=== PATIENT | female | born 1975 | race Caucasian/White ===

== ENCOUNTER 2016-10-29 16:07 | Emergency (ER) | payer MEDICAID ==
--- NOTE | 2016-10-29 17:16 | ER Document Report ---
ED Medical Screen (RME) - General Chief Complaint: Vaginal Pain Stated Complaint: VAGINAL PAIN Time Seen by Provider: 10/29/16 17:11 Mode of Arrival: Ambulatory Information source: Patient Notes: This is a 41-year-old female who is recently being treated for [place] spotted fever who presents with vaginal pain. She states that she has had vaginal irritation for the past few days and initially thought she might have a yeast infection. However she has since developed painful sores in her vaginal area along with dysuria. No fevers or chills. I have greeted and performed a rapid initial assessment of this patient. A comprehensive ED assessment and evaluation of the patient, analysis of test results and completion of the medical decision making process will be conducted by additional ED providers. TRAVEL OUTSIDE OF THE [place] IN LAST 30 DAYS: No - Related Data Allergies/Adverse Reactions: Penicillins Allergy (Verified 10/29/16 17:11) quetiapine [From Seroquel] Allergy (Verified 10/29/16 17:11) trazodone Allergy (Verified 10/29/16 17:11) doxycycline Adverse Reaction (Verified 10/29/16 17:11) Vomiting Past Medical History Pulmonary Medical History: Reports: Hx COPD Renal/ Medical History: Denies: Hx Peritoneal Dialysis Past Surgical History: Reports: Hx Orthopedic Surgery - Spinal fusion, SI joint fusion Physical Exam - Vital signs Vitals: Temp Pulse Resp BP Pulse Ox 98.3 F 97 18 118/73 97 10/29/16 16:22 10/29/16 16:22 10/29/16 16:22 10/29/16 16:22 10/29/16 16:22 Course - Vital Signs Vital signs: Temp Pulse Resp BP Pulse Ox 98.3 F 97 18 118/73 97 10/29/16 16:22 10/29/16 16:22 10/29/16 16:22 10/29/16 16:22 10/29/16 16:22
[2016-10-29] MEDS ORDERED: AZITHROMYCIN 250 MG TABLET PO ONE (18:32)
[2016-10-29] MEDS ORDERED: CEFTRIAXONE INJ 1000 MG VIAL IM ONE (18:32)
--- NOTE | 2016-10-29 18:32 | ER Document Report ---
ED General - General Mode of Arrival: Ambulatory Information source: Patient TRAVEL OUTSIDE OF THE [place] IN LAST 30 DAYS: No - HPI Onset: Other - x2 days Onset/Duration: Persistent Quality of pain: Burning Associated symptoms: None - General Chief Complaint: Vaginal Pain Stated Complaint: VAGINAL PAIN Time Seen by Provider: 10/29/16 17:11 Notes: Patient is a 41-year-old female that presents to the emergency department today with complaints of vaginal pain. Patient states 2 days ago she noticed a "tiny white spot on her labia that looked like a fire ant bite". Patient states she attempted to use Monistat cream which made her pain worse. (NICKY PAVON) - Related Data Allergies/Adverse Reactions: Penicillins Allergy (Verified 10/29/16 17:11) quetiapine [From Seroquel] Allergy (Verified 10/29/16 17:11) trazodone Allergy (Verified 10/29/16 17:11) doxycycline Adverse Reaction (Verified 10/29/16 17:11) Vomiting Past Medical History - General Information source: Patient - Social History Smoking Status: Unknown if Ever Smoked Frequency of alcohol use: None Drug Abuse: None Lives with: Family Family History: Reviewed & Not Pertinent Patient has suicidal ideation: No Patient has homicidal ideation: No Pulmonary Medical History: Reports: Hx COPD Past Surgical History: Reports: Hx Orthopedic Surgery - Spinal fusion, SI joint fusion Review of Systems - Review of Systems Constitutional: No symptoms reported EENT: No symptoms reported Cardiovascular: No symptoms reported Respiratory: No symptoms reported Gastrointestinal: No symptoms reported Genitourinary: No symptoms reported Female Genitourinary: See HPI, Other - external vaginal lesion, pain and burning Musculoskeletal: No symptoms reported Skin: No symptoms reported Hematologic/Lymphatic: No symptoms reported Neurological/Psychological: No symptoms reported -: Yes All other systems reviewed and negative Physical Exam - Vital signs Vitals: Temp Pulse Resp BP Pulse Ox 98.3 F 97 18 118/73 97 10/29/16 16:22 10/29/16 16:22 10/29/16 16:22 10/29/16 16:22 10/29/16 16:22 - Notes Notes: Physical Exam: General: Alert, appears well. HEENT: Normocephalic. Atraumatic. PERRL. Extraocular movements intact. Oropharynx clear. Neck: Supple. Non-tender. Respiratory: No respiratory distress. Clear and equal breath sounds bilaterally. Cardiovascular: Regular rate and rhythm. Abdominal: Normal Inspection. Non-tender. No distension. Normal Bowel Sounds. Female Genitourinary: Assisted by female tech. Copious amounts of white vaginal discharge. External lesions on labia consistent with herpetic lesions. Back: Non-tender. No deformity or step off. Extremities: Moves all four extremities. Upper extremities: Normal inspection. Normal ROM. Lower extremities: Normal inspection. No edema. Normal ROM. Neurological: Normal cognition. AAOx4. Normal speech. Psychological: Normal affect. Normal Mood. Skin: Warm. Dry. Normal color. (NICKY PAVON) Course - Re-evaluation Re-evalutation: 10/29/16 18:35 Patient presents emergency department chiefly of vaginal discharge and painful lesions on her vagina. She says she has had sexual partners in the past she is unaware that she is ever been exposed to genital herpes. She states that she thought she had a yeast infection uncertain is whether she has had gonorrhea chlamydia past. She is not . On examination she admits to taking some Vicodin and is under the influence of that. She says she has a follow-up appointment with [facility] for a Pap smear coming up in her primary care physician in [facility]. She has been recently diagnosed with [place] spotted fever but there is no association with what she is complaining of she has large amount of vaginal discharge and open sores to her external vagina concerning for herpes genitalia. Went ahead and give her Rocephin Zithromax. GC chlamydia wet prep and genital herpes culture follow-up [facility] start on acyclovir and discussed reasons for ED return to (KENTRELL DENG) - Vital Signs Vital signs: Temp Pulse Resp BP Pulse Ox 98.3 F 97 18 118/73 97 10/29/16 16:22 10/29/16 16:22 10/29/16 16:22 10/29/16 16:22 10/29/16 16:22 - Laboratory Laboratory results interpreted by me: 10/29/16 19:05 Ur Leukocyte Esterase LARGE H Urine Ascorbic Acid 40 H Discharge - Discharge Clinical Impression: Cervicitis, Genital lesion, female Condition: Stable Disposition: HOME, SELF-CARE Additional Instructions: Cervicitis You have an inflammation of the cervix. This can be caused by germs, viruses, or allergy (for example to spermicide). Sometimes no cause is found. If there is no obvious cause, you will be tested for dangerous infections. These are herpes, gonorrhea, and chlamydia. Cultures may take a few days. If the physician is suspicious of a particular cause, you may begin treatment while waiting for cultures. Call or return if you develop abdominal pain, fever, rash, or other new symptoms. concerns Genital Herpes Your exam suggests that you have a herpes infection. A culture can confirm the diagnosis. Herpes is caused by a virus, and can be transmitted sexually. After the initial infection has healed, the virus often erupts at the same location from time to time. Herpes can be treated with anti-viral medication. The medicine can be used as pills or ointment. It's most effective if started with the first symptoms of the attack. It is not a "cure" -- it simply shortens the length of the illness. If this is not your first attack, the medicine may not help you. In the female, herpes can infect the baby as it passes through the canal, causing a life-threatening disease. You should inform the cement handler that you've had herpes should you (or your spouse) become . Sexual contact should be avoided any time the sores are present, but the virus may be contagious even at other times. The use of condoms may help prevent infection in your partner. Prescriptions: Acyclovir [Acyclovir 400 mg Tablet] 400 mg PO DAILY #20 tablet Referrals: [facility] [Provider Group] (Follow-up in 3-4 days return for increased worsening or new symptoms) Nikitaibkatalina Attestation: 10/29/16 18:35 I personally performed the services described in the documentation reviewed the documentation recorded by my scribe in my presence and it accurately and completely records my words and actions (KENTRELL DENG) Nikitaibe Documentation - Scribe Written by Betsy:: Betsy Mancia, [id number] 10/29/2016 acting as scribe for :: Jan
[2016-10-29] MEDS ORDERED: LIDOCAINE 1% INJ-PF (10 MG/ML) 30 ML SDV ONE (18:57)
[2016-10-29 19:18] LABS: APPEARANCE,URINE SLIGHTLY-CLOUDY; BILIRUBIN,URINE NEGATIVE (NEGATIVE); GLUCOSE, URINE NEGATIVE (NEGATIVE); KETONES,URINE NEGATIVE (NEGATIVE); LEUKOCYTE ESTERASE,URINE LARGE (NEGATIVE); NITRITE,URINE NEGATIVE (NEGATIVE); PROTEIN,URINE NEGATIVE (NEGATIVE); URINE SPECIFIC GRAVITY 1.015; UROBILINOGEN,URINE NEGATIVE mg/dL (<2.0)
[2016-10-29 20:27] LABS: CHLAM PCR NOT DETECTED (NOT DETECT)
== END 2016-10-29 19:32 | disposition home or self-care (01) ==
LOC: ER 16:07
DX: N72 Inflammatory disease of cervix uteri (principal); N94.9 Unspecified condition associated with female genital organs and menstrual cycle; R10.2 Pelvic and perineal pain; R50.9 Fever, unspecified; Z88.0 Allergy status to penicillin; Z88.3 Allergy status to other anti-infective agents; J44.9 Chronic obstructive pulmonary disease, unspecified; Z98.1 Arthrodesis status
CPT/HCPCS: 99283; 96372; 87210; 81025; 81001; 87250; 87491; 87591; Q0144; J3490; J0696

== ENCOUNTER 2018-11-11 21:35 | Emergency (ER) | payer MEDICAID ==
[2018-11-11 22:08] VITALS: BP 93/66
[2018-11-11 22:43] LABS: ABSOLUTE EOSINOPHILS # (AUTO) 0.4 10^3/uL (0.0-0.6); ABSOLUTE LYMPHOCYTES (AUTO) 2.2 10^3/uL (0.5-4.7); ABSOLUTE MONOCYTES (AUTO) 0.7 10^3/uL (0.1-1.4); ABSOLUTE NEUT (AUTO) 11.5 10^3/uL (1.7-8.2); BASOPHILS % (AUTO) 0.2 % (0-2); EOSINOPHILS % (AUTO) 2.8 % (0-6); HEMATOCRIT 42.8 % (36.0-47.0); HEMOGLOBIN 14.7 g/dL (12.0-15.5); LYMPHOCYTES % (AUTO) 14.7 % (13-45); MEAN CORPUSCULAR HEMOGLOBIN 32.6 pg (27.0-33.4); MEAN CORPUSCULAR HGB CONC 34.4 g/dL (32.0-36.0); MEAN CORPUSCULAR VOLUME 95 fl (80-97); MONOCYTES % (AUTO) 4.6 % (3-13); PLATELET COUNT 226 10^3/uL (150-450); RED BLOOD COUNT 4.52 10^6/uL (3.72-5.28); RED CELL DISTRIBUTION WIDTH 13.7 % (11.5-14.0); SEGMENTED NEUTROPHILS % (AUTO) 77.7 % (42-78); TOTAL CELLS COUNTED % (AUTO) 100 %; WHITE BLOOD COUNT 14.8 10^3/uL (4.0-10.5)
[2018-11-11 22:46] LABS: APPEARANCE,URINE SLIGHTLY-CLOUDY; BILIRUBIN,URINE NEGATIVE (NEGATIVE); COLOR,URINE STRAW; GLUCOSE, URINE NEGATIVE (NEGATIVE); KETONES,URINE NEGATIVE (NEGATIVE); LEUKOCYTE ESTERASE,URINE TRACE (NEGATIVE); NITRITE,URINE NEGATIVE (NEGATIVE); PROTEIN,URINE NEGATIVE (NEGATIVE); URINE SPECIFIC GRAVITY 1.004; UROBILINOGEN,URINE NEGATIVE mg/dL (<2.0)
[2018-11-11 22:58] LABS: ALANINE AMINOTRANSFERASE 17 U/L (9-52); ALBUMIN 4.8 g/dL (3.5-5.0); ALKALINE PHOSPHATASE 47 U/L (38-126); ANION GAP 10 (5-19); ASPARTATE AMINO TRANSFERASE 17 U/L (14-36); BILIRUBIN,DIRECT 0.3 mg/dL (0.0-0.4); BILIRUBIN,TOTAL 0.4 mg/dL (0.2-1.3); BLOOD UREA NITROGEN 16 mg/dL (7-20); CALCIUM 9.9 mg/dL (8.4-10.2); CARBON DIOXIDE 29 mmol/L (22-30); CHLORIDE 100 mmol/L (98-107); GLUCOSE 102 mg/dL (75-110); LIPASE 60.1 U/L (23-300); POTASSIUM 4.5 mmol/L (3.6-5.0); SODIUM 139.1 mmol/L (137-145); TOTAL PROTEIN 7.9 g/dL (6.3-8.2)
== END 2018-11-12 01:25 | disposition left against medical advice (07) ==
LOC: ER 21:35
DX: Z53.21 Procedure and treatment not carried out due to patient leaving prior to being seen by health care provider (principal)
CPT/HCPCS: 36415; 80053; 81001; 81025; 83690; 85025

== ENCOUNTER 2018-11-12 20:35 | Emergency (ER) | payer MEDICAID ==
[2018-11-12 20:57] VITALS: BP 88/62
[2018-11-12 22:09] LABS: ABSOLUTE EOSINOPHILS # (AUTO) 0.3 10^3/uL (0.0-0.6); ABSOLUTE LYMPHOCYTES (AUTO) 2.3 10^3/uL (0.5-4.7); ABSOLUTE MONOCYTES (AUTO) 0.8 10^3/uL (0.1-1.4); ABSOLUTE NEUT (AUTO) 7.4 10^3/uL (1.7-8.2); BASOPHILS % (AUTO) 0.2 % (0-2); EOSINOPHILS % (AUTO) 2.6 % (0-6); HEMATOCRIT 41.8 % (36.0-47.0); HEMOGLOBIN 14.6 g/dL (12.0-15.5); LYMPHOCYTES % (AUTO) 21.1 % (13-45); MEAN CORPUSCULAR VOLUME 94 fl (80-97); MONOCYTES % (AUTO) 7.3 % (3-13); PLATELET COUNT 219 10^3/uL (150-450); RED BLOOD COUNT 4.43 10^6/uL (3.72-5.28); RED CELL DISTRIBUTION WIDTH 13.2 % (11.5-14.0); SEGMENTED NEUTROPHILS % (AUTO) 68.8 % (42-78); TOTAL CELLS COUNTED % (AUTO) 100 %; WHITE BLOOD COUNT 10.7 10^3/uL (4.0-10.5)
[2018-11-12] MEDS ORDERED: OXYCODONE-ACETAMINOPHEN 5-325 MG TABLET PO ONE (22:15)
[2018-11-12] MEDS ORDERED: ONDANSETRON 4 MG TAB.RAPDIS PO ONE (22:15)
--- NOTE | 2018-11-12 22:18 | ER Document Report ---
ED Medical Screen (RME) - General Chief Complaint: Flank Pain Stated Complaint: ABDOMINAL PAIN Time Seen by Provider: 11/12/18 22:14 Notes: 43-year-old female with chief complaint of right abdominal/pelvic pain that started almost 2 days ago, she was here last night but left because of the long wait, she states it worsened today and she became nauseated. She does have a history of ovarian cysts, she does still have her appendix. She denies fever/chills, dysuria. She has had some light vaginal bleeding intermittently. TRAVEL OUTSIDE OF THE [place] IN LAST 30 DAYS: No - Related Data Allergies/Adverse Reactions: Penicillins Allergy (Verified 11/12/18 20:40) quetiapine [From Seroquel] Allergy (Verified 11/12/18 20:40) trazodone Allergy (Verified 11/12/18 20:40) doxycycline Adverse Reaction (Verified 11/12/18 20:40) Vomiting Past Medical History Pulmonary Medical History: Reports: Hx COPD Renal/ Medical History: Denies: Hx Peritoneal Dialysis Past Surgical History: Reports: Hx Orthopedic Surgery - Spinal fusion, SI joint fusion Physical Exam - Vital signs Vitals: Temp Pulse Resp BP Pulse Ox 98.2 F 105 H 16 88/62 L 97 11/12/18 20:56 11/12/18 20:56 11/12/18 20:56 11/12/18 20:56 11/12/18 20:56 - Abdominal Tenderness: Tender - Tender in the right abdominal pelvic area. Remaining abdomen with generalized tenderness only. Course - Re-evaluation Re-evalutation: Blood pressure is 88 systolic, patient states her average is 90 and 88 is normal. She is alert, talkative, not diaphoretic. She is slim. She is very tender in the right general mid to lower abdomen. Performing an ultrasound first, test from yesterday was completed and negative. I have greeted and performed a rapid initial assessment of this patient. A comprehensive ED assessment and evaluation of the patient, analysis of test results and completion of the medical decision making process will be conducted by additional ED providers. - Vital Signs Vital signs: Temp Pulse Resp BP Pulse Ox 98.2 F 105 H 16 88/62 L 97 11/12/18 20:56 11/12/18 20:56 11/12/18 20:56 11/12/18 20:56 11/12/18 20:56 - Laboratory Result Diagrams: 11/12/18 21:50 11/12/18 21:50 Laboratory results interpreted by me: 11/12/18 21:50 WBC 10.7 H
[2018-11-12 22:35] LABS: ALANINE AMINOTRANSFERASE 14 U/L (9-52); ALBUMIN 4.2 g/dL (3.5-5.0); ALKALINE PHOSPHATASE 48 U/L (38-126); ANION GAP 9 (5-19); ASPARTATE AMINO TRANSFERASE 15 U/L (14-36); BILIRUBIN,DIRECT 0.3 mg/dL (0.0-0.4); BILIRUBIN,TOTAL 0.4 mg/dL (0.2-1.3); BLOOD UREA NITROGEN 14 mg/dL (7-20); CALCIUM 9.3 mg/dL (8.4-10.2); CARBON DIOXIDE 26 mmol/L (22-30); CHLORIDE 102 mmol/L (98-107); GLUCOSE 104 mg/dL (75-110); POTASSIUM 3.7 mmol/L (3.6-5.0); SODIUM 136.7 mmol/L (137-145); TOTAL PROTEIN 7.2 g/dL (6.3-8.2)
[2018-11-12 22:42] LABS: APPEARANCE,URINE SLIGHTLY-CLOUDY; BILIRUBIN,URINE NEGATIVE (NEGATIVE); COLOR,URINE YELLOW; GLUCOSE, URINE NEGATIVE (NEGATIVE); KETONES,URINE NEGATIVE (NEGATIVE); LEUKOCYTE ESTERASE,URINE TRACE (NEGATIVE); NITRITE,URINE NEGATIVE (NEGATIVE); PROTEIN,URINE NEGATIVE (NEGATIVE); URINE SPECIFIC GRAVITY 1.015; UROBILINOGEN,URINE NEGATIVE mg/dL (<2.0)
--- NOTE | 2018-11-13 00:29 | RADIOLOGY REPORT (SQ) ---
EXAM DESCRIPTION: US PELVIS TRANSVAGINAL COMPLETED DATE/TME: 11/12/2018 22:15 CLINICAL HISTORY: 43 years Female, right pelvic pain, nausea, hx cysts COMPARISON: None. TECHNIQUE: Complete pelvic ultrasound obtained with transvaginal and transabdominal imaging FINDINGS: Uterus: The uterus measures 8.4 x 5.3 x 3.8 cm. Curvilinear hyperdense structure with posterior shadowing in the uterine fundus possibly representing a calcified fibroid. Endometrium: Endometrial thickness of 3.5 mm. Right ovary: The right ovary measures 3.0 x 3.2 x 1.2 cm. Left ovary: The left ovary measures 2.3 x 2.3 x 1.9 cm. Adnexa: No large adnexal masses. Free fluid: No free pelvic fluid. Duplex imaging: Color and spectral Doppler imaging demonstrate blood flow within the ovaries bilaterally. IMPRESSION: 1. Possible calcified fibroid in the uterine fundus measuring 1.4 cm in greatest dimension. 2. No other abnormalities identified in the pelvis.
[2018-11-13] MEDS ORDERED: OXYCODONE-ACETAMINOPHEN 5-325 MG TABLET PO ONE (01:21)
[2018-11-13] MEDS ORDERED: ONDANSETRON 4 MG TAB.RAPDIS PO ONE (01:21)
--- NOTE | 2018-11-13 03:48 | ER Document Report ---
ED General <ADRIAN EAGLE - Last Filed: 11/13/18 06:56> - General TRAVEL OUTSIDE OF THE [place] IN LAST 30 DAYS: No <MATYE SETHI - Last Filed: 11/14/18 06:09> - General Chief Complaint: Flank Pain Stated Complaint: ABDOMINAL PAIN Time Seen by Provider: 11/12/18 22:14 Primary Care Provider: [facility] [Provider Group] - Follow up as needed - HPI Notes: Patient is a 43-year-old female who comes to the emergency department for evaluation of right lower quadrant abdominal pain. She states this started yesterday. She actually came to the ED to be seen, but waited "too long" and decided to leave. She states today her pain worsened, she became nauseated, so she presents back to the ED for further evaluation. She does remark that she is had a diminished appetite. She had some nausea but no emesis. Normal bowel movements. She has had some abnormal vaginal bleeding. She states she has had at least spotting for 4 weeks. She does note that her mother became perimenopausal around the same age. She is sexually active. She denies any vaginal discharge. (MAYTE SETHI) - Related Data Allergies/Adverse Reactions: Penicillins Allergy (Verified 11/12/18 20:40) quetiapine [From Seroquel] Allergy (Verified 11/12/18 20:40) trazodone Allergy (Verified 11/12/18 20:40) doxycycline Adverse Reaction (Verified 11/12/18 20:40) Vomiting Past Medical History - General Information source: Patient - Social History Smoking Status: Current Every Day Smoker Frequency of alcohol use: Social Drug Abuse: None Family History: Reviewed & Not Pertinent, Malignancy - Ovarian cancer in mother, Pulmonary Medical History: Reports: Hx COPD Renal/ Medical History: Denies: Hx Peritoneal Dialysis Past Surgical History: Reports: Hx Orthopedic Surgery - Spinal fusion, SI joint fusion <MAYTE SETHI - Last Filed: 11/14/18 06:09> Review of Systems - Review of Systems Constitutional: No symptoms reported EENT: No symptoms reported Cardiovascular: No symptoms reported Respiratory: No symptoms reported Gastrointestinal: See HPI Genitourinary: No symptoms reported Female Genitourinary: See HPI Musculoskeletal: No symptoms reported Skin: No symptoms reported Neurological/Psychological: No symptoms reported <MAYTE SETHI - Last Filed: 11/14/18 06:09> Physical Exam <MAYTE SETHI - Last Filed: 11/14/18 06:09> - Vital signs Vitals: Temp Pulse Resp BP Pulse Ox 98.2 F 105 H 16 88/62 L 97 11/12/18 20:56 11/12/18 20:56 11/12/18 20:56 11/12/18 20:56 11/12/18 20:56 - Notes Notes: Vital signs reviewed, please refer to chart. Head is normocephalic, atraumatic. Pupils equal round, reactive to light. Neck is supple without meningismus. Heart is regular rate and rhythm. Lungs are clear to auscultation bilaterally. Abdominal exam reveals severe right lower quadrant tenderness, moderate right upper quadrant tenderness, with voluntary guarding. No rebound appreciated. Normoactive bowel sounds. Extremities without cyanosis, clubbing. Posterior calves are nontender. Peripheral pulses are equal. Skin is warm and dry. Patient is awake, alert, neurological exam is nonfocal. (MAYTE SETHI) Course - Laboratory Result Diagrams: 11/12/18 21:50 11/12/18 21:50 <ADRIAN EAGLE - Last Filed: 11/13/18 06:56> - Laboratory Result Diagrams: 11/12/18 21:50 11/12/18 21:50 - Diagnostic Test Radiology reviewed: Reports reviewed <MAYTE SETHI - Last Filed: 11/14/18 06:09> - Re-evaluation Re-evalutation: 11/13/18 03:47 Patient presents emergency department for evaluation of abdominal pain. Laboratory investigations, imaging, initial medications were all ordered through triage. Patient's transvaginal ultrasound failed to reveal any significant cyst or other etiology of her pain. Patient was kept NPO. Labs revealed a mild leukocytosis, otherwise unremarkable. Awaiting CT scan. 11/13/18 04:20 As of yet, patient has not had her CT scan done. Serial abdominal exams are significantly tender. She is medicated here. Care of this patient was turned over to the physician assistant county engineer, please see his note for the remainder of this patient's ED course and disposition. (MAYTE SETHI) - Vital Signs Vital signs: Temp Pulse Resp BP Pulse Ox 98.2 F 105 H 16 88/62 L 97 11/12/18 20:56 11/12/18 20:56 11/12/18 20:56 11/12/18 20:56 11/12/18 20:56 - Laboratory Laboratory results interpreted by me: 11/12/18 11/12/18 11/12/18 21:50 21:50 21:50 WBC 10.7 H Sodium 136.7 L Urine Blood MODERATE H Ur Leukocyte Esterase TRACE H - Diagnostic Test Radiology results interpreted by me: 11/14/18 06:08 Transvaginal US 11/12/18 22:15 IMPRESSION: 1. Possible calcified fibroid in the uterine fundus measuring 1.4 cm in greatest dimension. 2. No other abnormalities identified in the pelvis. Abdomen/Pelvis CT 11/13/18 00:00 IMPRESSION: 1. No evidence of acute intra-abdominal or intrapelvic pathology. 2. Hepatomegaly. 3. Remote postsurgical changes of the lumbar spine consistent with posterior decompression and fusion of L4-S1 utilizing pedicle screws. The indwelling hardware produces significant spray artifact resulting in slight degradation of image quality at the operative levels. 4. No evidence of acute appendicitis, gallbladder pathology or urinary tract obstruction. There are no findings on this examination to explain the patient's right lower quadrant symptoms. (MAYTE SETHI) Discharge <ADRIAN EAGLE - Last Filed: 11/13/18 06:56> <MAYTE SETHI - Last Filed: 11/14/18 06:09> - Discharge Clinical Impression: Right sided abdominal pain Condition: Stable Disposition: HOME, SELF-CARE Additional Instructions: Your workup shows a uterine fibroid, chronic back changes, but no acute or concerning findings otherwise are noted today. At this time we do not believe that your abdominal pain is from a surgical abnormality. Take the provided medication if needed, take stool softener, follow-up with TRAVEL DIRECTOR for additional management. Return if you worsen including fever, shaking chills, swelling or severe pain of the abdomen, vomiting, or any other concerning or worsening symptoms. Prescriptions: Docusate Sodium [Colace 100 mg Capsule] 100 mg PO ASDIR PRN #30 capsule PRN Reason: Hydrocodone/Acetaminophen [[place]ork 5-325 mg Tablet] 1 - 2 tab PO ASDIR #10 tablet Ondansetron [Zofran Odt 4 mg Tablet] 1 - 2 tab PO Q4H PRN #15 tab.rapdis PRN Reason: For Nausea/Vomiting Forms: Return to Work Referrals: [facility] [Provider Group] - Follow up as needed
[2018-11-13] MEDS ORDERED: ONDANSETRON HCL INJ/PF 4 MG/2 ML SDV IV ONE (04:11)
[2018-11-13] MEDS ORDERED: MORPHINE SULFATE 10 MG/ML INJ IV ONE (04:11)
--- NOTE | 2018-11-13 05:34 | RADIOLOGY REPORT (SQ) ---
EXAM: CT abdomen and pelvis with IV contrast CLINICAL DATA: 43-year-old female with right lower quadrant pain TECHNICAL DATA: Axial CT imaging of the abdomen and pelvis was performed following the administration of intravenous contrast.. Sagittal and coronal reconstructed images were then performed. The CT study is performed according to ALARA (as low as reasonably achievable) or ALARA/IMAGE GENTLY, with automatic adjustment of mA and/or kV according to patient size. Performed on: 11/13/2018 at 4:50 AM. Comparison: None were available at this time FINDINGS: Lung bases: The lung bases are clear. Liver: The liver is enlarged and measures 20 cm in craniocaudal dimension. No focal hepatic abnormalities are identified. Liver attenuation is within normal limits. Spleen:The spleen is normal is size, configuration and attenuation. Gallbladder and bile duct: The gallbladder is well distended and unremarkable. There is no biliary ductal dilatation. Pancreas: The pancreas is grossly normal in size and configuration. Adrenal Glands:The adrenal glands are normal in size and configuration. Kidneys:The kidneys are normal in size and configuration. There is no evidence of hydronephrosis. There is no evidence of nephrolithiasis. No definite solid or cystic renal mass lesions are identified. Stomach:The stomach is grossly normal. There is no definite hiatal hernia. Bowel:The bowel gas pattern is non specific and non obstructive. Appendix: The appendix is normal. Free air:There is no evidence of free air. Free fluid: There is no evidence of free fluid. Vasculature: The aorta is normal in caliber and contour. The inferior vena cava is grossly unremarkable. There are mild atherosclerotic calcifications along the abdominal aorta. There is significant spray artifact related to the indwelling hardware in the lumbar spine extending from L4 through S1. Lymphadenopathy: No pathologic lymphadenopathy is identified. Bladder: The bladder is well distended and smooth in contour. Reproductive: The uterus is grossly within normal limits. Bones: No acute osseous abnormalities are identified. There are remote postsurgical changes of the lumbar spine consistent with posterior decompression and fusion of L4-S1 utilizing pedicle screws. There is no evidence to suggest hardware failure. The indwelling hardware produces significant spray artifact resulting in slight degradation of image quality at the operative levels. Soft tissues: No focal soft tissue abnormalities are identified. IMPRESSION: 1. No evidence of acute intra-abdominal or intrapelvic pathology. 2. Hepatomegaly. 3. Remote postsurgical changes of the lumbar spine consistent with posterior decompression and fusion of L4-S1 utilizing pedicle screws. The indwelling hardware produces significant spray artifact resulting in slight degradation of image quality at the operative levels. 4. No evidence of acute appendicitis, gallbladder pathology or urinary tract obstruction. There are no findings on this examination to explain the patient's right lower quadrant symptoms.
[2018-11-13] MEDS ORDERED: HYDROCODONE/ACETAMINOPHEN 5-325 MG (6 TAB/ER DISP) PO PRN (06:56)
== END 2018-11-13 07:09 | disposition home or self-care (01) ==
LOC: ER 20:35
DX: R10.31 Right lower quadrant pain (principal); R10.813 Right lower quadrant abdominal tenderness; R10.811 Right upper quadrant abdominal tenderness; R11.0 Nausea; R63.0 Anorexia; R16.0 Hepatomegaly, not elsewhere classified; N93.9 Abnormal uterine and vaginal bleeding, unspecified; J44.9 Chronic obstructive pulmonary disease, unspecified; F17.200 Nicotine dependence, unspecified, uncomplicated; Z80.41 Family history of malignant neoplasm of ovary; Z88.0 Allergy status to penicillin; Z88.8 Allergy status to other drugs, medicaments and biological substances
CPT/HCPCS: 99284; 96374; 96375; 36415; 83690; 84703; 85025; 80053; 81001; 76830; 93976; 74177; S0119 ×2; J2270; J2405

== ENCOUNTER 2019-02-15 17:22 | Emergency (ER) | payer SELFPAY | END 2019-02-15 18:50 | disposition left against medical advice (07) | LOC: ER 17:22 | DX: Z53.21 Procedure and treatment not carried out due to patient leaving prior to being seen by health care provider (principal) ==

== ENCOUNTER 2019-07-17 08:56 | Emergency (ER) | payer SELFPAY ==
--- NOTE | 2019-07-17 09:15 | ER Document Report ---
HPI - HPI Time Seen by Provider: 07/17/19 09:09 Pain Level: 4 Notes: CHIEF COMPLAINT: Thoracic back pain over the last 1 to 2 weeks after coughing HPI: 44-year-old female presenting to the emergency department complaining of thoracic back pain over the last 1 to 2 weeks on the right side. Patient states that she and her family members had developed a cough 2 weeks ago. Patient had very heavy coughing, states that is improved she has no shortness of breath or pleuritic pain when she attempts to move her right arm back she has pain in the right thoracic back area near the scapula. States IcyHot patches do seem to work on the pain. ROS: See HPI - all other systems were reviewed and are otherwise negative Constitutional: no fever Eyes: no drainage, no blurred vision ENT: no runny nose, no sore throat Cardiovascular: no chest pain Resp: no SOB, positive cough GI: no vomiting, no diarrhea, no abdominal pain : no dysuria Integumentary: no rash Allergy: no hives Musculoskeletal: no extremity pain or swelling, positive back pain Neurological: no numbness/tingling, no weakness MEDICATIONS: I agree with the patient medications as charted by the RN. ALLERGIES: I agree with the allergies as charted by the RN. PAST MEDICAL HISTORY/PAST SURGICAL HISTORY: Reviewed and agree as charted by RN. SOCIAL HISTORY: Reviewed and agree as charted by RN. FAMILY HISTORY: No significant familial comorbid conditions directly related to patient complaint EXAM: Reviewed vital signs as charted by RN. CONSTITUTIONAL: Alert and oriented and responds appropriately to questions. Well-appearing; well-nourished, mild distress secondary to pain HEAD: Normocephalic; atraumatic EYES: PERRL; Conjunctivae clear, sclerae non-icteric ENT: normal nose; no rhinorrhea; moist mucous membranes; pharynx without lesions noted, no uvula edema or deviation, no tonsillar hypertrophy, phonation normal NECK: Supple without meningismus; non-tender; no cervical lymphadenopathy, no masses CARD: RRR; no murmurs, no clicks, no rubs, no gallops; symmetric distal pulses RESP: Normal chest excursion without splinting or tachypnea; breath sounds clear and equal bilaterally; no wheezes, no rhonchi, no rales ABD/GI: Normal bowel sounds; non-distended; soft, non-tender, no rebound, no guarding; no palpable organomegaly or masses. BACK: The back appears normal and is non-tender to palpation directly over the thoracic and lumbar spine there is muscular tenderness medial to the right scapula, there is no CVA tenderness EXT: Normal ROM in all joints; non-tender to palpation; no cyanosis, no effusions, no edema SKIN: Normal color for age and race; warm; dry; good turgor; no acute lesions noted NEURO: Moves all extremities equally; Motor and sensory function intact PSYCH: The patient's mood and manner are appropriate. Grooming and personal hygiene are appropriate. MDM: 44-year-old female with thoracic back pain that is reproducible. Likely muscular strain, will obtain chest x-ray given her recent cough to ensure no pneumonia or pneumothorax - REPRODUCTIVE Reproductive: DENIES: : Past Medical History - Social History Smoking Status: Current Every Day Smoker Chew tobacco use (# tins/day): No Frequency of alcohol use: Rare Drug Abuse: None Family History: Reviewed & Not Pertinent, Malignancy - Ovarian cancer in mother, Patient has suicidal ideation: No Patient has homicidal ideation: No Pulmonary Medical History: Reports: Hx COPD Renal/ Medical History: Denies: Hx Peritoneal Dialysis Past Surgical History: Reports: Hx Orthopedic Surgery - Spinal fusion, SI joint fusion Vertical Provider Document - INFECTION CONTROL TRAVEL OUTSIDE OF THE [place] IN LAST 30 DAYS: No Course - Re-evaluation Re-evalutation: 07/17/19 09:47 X-ray on my review does not show evidence of pneumothorax or infiltrate, likely muscular injury will place on Voltaren, Flexeril, orthopedic follow-up Discharge - Discharge Clinical Impression: Acute thoracic myofascial strain Qualifiers: Encounter type: initial encounter Qualified Code(s): S29.019A - Strain of muscle and tendon of unspecified wall of thorax, initial encounter Condition: Stable Disposition: HOME, SELF-CARE Additional Instructions: Warm heat to the right thoracic back for spasm. Medications as prescribed no driving if taking muscle relaxers. Follow-up with orthopedics for further evaluation and treatment call for appointment Prescriptions: Cyclobenzaprine HCl [Flexeril 10 mg Tablet] 10 mg PO TIDP PRN #15 tab PRN Reason: Diclofenac Sodium [Voltaren 50 Mg Tablet.] 50 mg PO BID #20 tablet. Referrals: LINA PEDRO MD [ACTIVE PROVISIONAL STAFF] - Follow up as needed
--- NOTE | 2019-07-17 09:38 | RADIOLOGY REPORT (SQ) ---
EXAM DESCRIPTION: CHEST 2 VIEWS COMPLETED DATE/TIME: 07/17/2019 9:24 am REASON FOR STUDY: thoracic back pain cough COMPARISON: None. EXAM PARAMETERS: NUMBER OF VIEWS: two views TECHNIQUE: Digital Frontal and Lateral radiographic views of the chest acquired. RADIATION DOSE: NA LIMITATIONS: none FINDINGS: LUNGS AND PLEURA: No opacities, masses or pneumothorax. No pleural effusion. MEDIASTINUM AND HILAR STRUCTURES: No masses or contour abnormalities. HEART AND VASCULAR STRUCTURES: Heart normal size. No evidence for failure. BONES: No acute findings. HARDWARE: None in the chest. OTHER: No other significant finding. IMPRESSION: NO ACUTE RADIOGRAPHIC FINDING IN THE CHEST. TECHNICAL DOCUMENTATION: JOB ID: [id number] 2010 [employer]- All Rights Reserved Reading location - IP/workstation name: [email or web address]
[2019-07-17 10:25] VITALS: BP 96/54
== END 2019-07-17 10:19 | disposition home or self-care (01) ==
LOC: ER 08:56
DX: S29.012A Strain of muscle and tendon of back wall of thorax, initial encounter (principal); X58.XXXA Exposure to other specified factors, initial encounter; J44.9 Chronic obstructive pulmonary disease, unspecified; R05 Cough; F17.200 Nicotine dependence, unspecified, uncomplicated
CPT/HCPCS: 71046; 99283

== ENCOUNTER 2019-10-22 14:01 | Emergency (ER) | payer SELFPAY ==
[2019-10-22] MEDS ORDERED: NORMAL SALINE 1000 ML 1,000 ML IV ONE (16:23)
[2019-10-22] MEDS ORDERED: PROCHLORPERAZINE EDISYLATE INJ 10 MG/2 ML VIAL IV ONE (16:23)
[2019-10-22] MEDS ORDERED: KETOROLAC TROMETHAMINE INJ/PF 30 MG/1 ML SDV IV ONE (16:23)
[2019-10-22] MEDS ORDERED: DIPHENHYDRAMINE HCL 50 MG/ML VIAL IV ONE (16:23)
--- NOTE | 2019-10-22 16:24 | ER Document Report ---
ED General - General Chief Complaint: Headache Stated Complaint: CHEST PAIN Time Seen by Provider: 10/22/19 16:11 Primary Care Provider: [facility] [Provider Group] - Follow up as needed Mode of Arrival: Ambulatory Information source: Patient Notes: Patient presents complaining of increased stress recently due to strained relations between her and her roommate whom she also happens to work with. Patient states that the stress is spilled over into the workplace. Patient states yesterday she feels as though she had an anxiety attack and had sharp chest pain. Patient states the pain has not been present today. Patient denies any cough or cold symptoms. Patient denies any nausea or vomiting. Patient states due to the increase in stress she has been clenching her jaw and each side of her jaw is sore. Patient complains of headache today. TRAVEL OUTSIDE OF THE [place] IN LAST 30 DAYS: No - HPI Onset: Yesterday Quality of pain: Other - Tightness Pain Level: 4 Associated symptoms: Chest pain, Headache. denies: Nonproductive cough, Diarrhea, Fever, Nausea, Vomiting, Shortness of breath Exacerbated by: Other - Stress Relieved by: Denies Similar symptoms previously: No Recently seen / treated by doctor: No - Related Data Allergies/Adverse Reactions: Penicillins Allergy (Verified 07/17/19 09:01) quetiapine [From Seroquel] Allergy (Verified 07/17/19 09:01) trazodone Allergy (Verified 07/17/19 09:01) doxycycline Adverse Reaction (Verified 07/17/19 09:01) Vomiting Past Medical History - General Information source: Patient - Social History Smoking Status: Current Every Day Smoker Frequency of alcohol use: None Drug Abuse: None Occupation: Foodservice Lives with: Other - Roommate Family History: Reviewed & Not Pertinent, Malignancy - Ovarian cancer in mother, Patient has homicidal ideation: No Pulmonary Medical History: Reports: Hx COPD Renal/ Medical History: Denies: Hx Peritoneal Dialysis Psychiatric Medical History: Reports: Hx Anxiety, Hx Depression Past Surgical History: Reports: Hx Orthopedic Surgery - Spinal fusion, SI joint fusion Review of Systems - Review of Systems Constitutional: No symptoms reported. denies: Fever, Recent illness EENT: Other - Jaw pain Cardiovascular: Chest pain Respiratory: No symptoms reported. denies: Cough, Short of breath Gastrointestinal: No symptoms reported. denies: Abdominal pain, Vomiting Genitourinary: No symptoms reported Female Genitourinary: No symptoms reported Musculoskeletal: No symptoms reported. denies: Neck pain Skin: No symptoms reported Hematologic/Lymphatic: No symptoms reported Neurological/Psychological: Headaches Physical Exam - Vital signs Vitals: Temp Pulse Resp BP Pulse Ox 97.5 F 83 16 111/69 98 10/22/19 14:20 10/22/19 14:20 10/22/19 14:20 10/22/19 14:20 10/22/19 14:20 - General General appearance: Appears well, Alert In distress: None - HEENT Head: Normocephalic, Atraumatic Eyes: Normal Conjunctiva: Normal Extraocular movements intact: Yes Eyelashes: Normal Pupils: PERRL Ears: Normal External canal: Normal Tympanic membrane: Normal Nasal: Normal Mouth/Lips: Other - TMJ joint tenderness, no crepitus,normal bite Mucous membranes: Normal Pharynx: Normal. No: Erythema, Tonsillar hypertrophy Neck: Normal, Supple. No: Lymphadenopathy, Meningismus - Respiratory Respiratory status: No respiratory distress Chest status: Nontender Breath sounds: Normal. No: Rales, Rhonchi, Stridor, Wheezing Chest palpation: Normal - Cardiovascular Rhythm: Regular Heart sounds: S1 appreciated, S2 appreciated - Abdominal Inspection: Normal Distension: No distension Bowel sounds: Normal Tenderness: Nontender Organomegaly: No organomegaly - Back Back: Normal, Nontender. No: CVA tenderness - Extremities General upper extremity: Normal inspection, Normal strength General lower extremity: Normal inspection, Normal strength - Neurological Neuro grossly intact: Yes Cognition: Normal Lilly Coma Scale Eye Opening: Spontaneous [place] Coma Scale Verbal: Oriented Lilly Coma Scale Motor: Obeys Commands Lilly Coma Scale Total: 15 - Psychological Associated symptoms: Normal affect, Normal mood - Skin Skin Temperature: Warm Skin Moisture: Dry Skin Color: Normal Course - Re-evaluation Re-evalutation: 10/22/19 18:43 Patient states that headache pain is almost completely resolved at this time. Patient denies any any additional pain medication at this time. Patient denies any chest discomfort and has not had any pain since yesterday. The patient presents with headache without signs of CHUCK BONER bleed, stroke, infection, or other serious etiology. The patient is neurologically intact. Patient with a history of chest pain in an otherwise well appearing patient. Low clinical suspicion for ACS given clinical history, exam, EKG without acute ischemic changes, and negative initial troponin. HEART score less than or equal to 3. PE also seems unlikely given clinical history, absence of tachycardia or dyspnea. Patient is PERC criteria negative. CXR without evidence of pneumothorax or pneumonia. No widened mediastinum. Chest pain in a patient without evidence of cardiac or other serious etiology on workup today. I discussed with patient that, based on their age, risk factors and emergency department testing today, the likelihood that their symptoms are related to a heart attack is very low. The patient demonstrates decision making capacity and has verbalized an understanding of these risks to me. Based on this, the patient has chosen to follow-up as an outpatient. Usual chest pain return precautions reviewed. The patient states understanding and agreement with this plan. - Vital Signs Vital signs: Temp Pulse Resp BP Pulse Ox 97.5 F 83 17 104/68 100 10/22/19 15:25 10/22/19 14:20 10/22/19 18:13 10/22/19 18:51 10/22/19 18:13 - Laboratory Result Diagrams: 10/22/19 15:50 10/22/19 15:50 Laboratory results interpreted by me: 10/22/19 15:50 Sodium 136.1 L Labs- All tests 24 hr 10/22/19 10/22/19 10/22/19 15:50 15:50 15:50 WBC 7.0 RBC 4.23 Hgb 13.9 Hct 40.2 MCV 95 MCH 32.8 MCHC 34.6 RDW 14.0 Plt Count 203 Lymph % (Auto) 33.7 [place] % (Auto) 5.2 Eos % (Auto) 1.1 Baso % (Auto) 0.3 Absolute Neuts (auto) 4.2 Absolute Lymphs (auto) 2.4 Absolute Monos (auto) 0.4 Absolute Eos (auto) 0.1 Absolute Basos (auto) 0.0 Seg Neutrophils % 59.7 Sodium 136.1 L Potassium 4.0 Chloride 104 Carbon Dioxide 27 Anion Gap 5 BUN 10 Creatinine 0.61 Est GFR ( Amer) > 60 Est GFR (MDRD) Non-Af > 60 Glucose 84 Calcium 9.1 Total Bilirubin 0.5 Direct Bilirubin 0.0 Neonat Total Bilirubin Not Reportable Neonat Direct Bilirubin Not Reportable Neonat Indirect Bili Not Reportable AST 19 ALT 10 Alkaline Phosphatase 41 Troponin I < 0.012 Total Protein 7.0 Albumin 4.1 - Diagnostic Test Radiology reviewed: Reports reviewed - EKG Interpretation by Me EKG shows normal: Sinus rhythm Rate: Normal Rhythm: NSR When compared to previous EKG there are: Previous EKG unavailable Additional EKG results interpreted by me: 10/22/19 18:45 QTc 441, no acute ischemic changes Discharge - Discharge Clinical Impression: Anxiety, Stress at work Chest pain Qualifiers: Chest pain type: unspecified Qualified Code(s): R07.9 - Chest pain, unspecified Headache Qualifiers: Headache type: unspecified Headache chronicity pattern: unspecified pattern Intractability: not intractable Qualified Code(s): R51 - Headache Condition: Stable Disposition: HOME, SELF-CARE Instructions: Anxiety ([facility]), Intravenous Compazine for Headaches ([facility]), Chest Pain of Unclear Cause ([facility]), Headache ([facility]), Toradol Injection ([facility]) Additional Instructions: Return immediately for any new or worsening symptoms Followup with your primary care provider, call tomorrow to make a followup ap pointment Prescriptions: Butalb/Acetaminophen/Caffeine [Fioricet (50-325-40 mg) Tablet] 1 - 2 tab PO Q4H PRN #15 each PRN Reason: Hydroxyzine Pamoate [Vistaril 50 mg Capsule] 50 mg PO TID PRN #15 capsule PRN Reason: Forms: Return to Work [facility] [Provider Group] - Follow up as needed
[2019-10-22 16:44] LABS: ABSOLUTE EOSINOPHILS # (AUTO) 0.1 10^3/uL (0.0-0.6); ABSOLUTE LYMPHOCYTES (AUTO) 2.4 10^3/uL (0.5-4.7); ABSOLUTE MONOCYTES (AUTO) 0.4 10^3/uL (0.1-1.4); ABSOLUTE NEUT (AUTO) 4.2 10^3/uL (1.7-8.2); BASOPHILS % (AUTO) 0.3 % (0-2); EOSINOPHILS % (AUTO) 1.1 % (0-6); HEMATOCRIT 40.2 % (36.0-47.0); HEMOGLOBIN 13.9 g/dL (12.0-15.5); LYMPHOCYTES % (AUTO) 33.7 % (13-45); MEAN CORPUSCULAR HEMOGLOBIN 32.8 pg (27.0-33.4); MEAN CORPUSCULAR HGB CONC 34.6 g/dL (32.0-36.0); MEAN CORPUSCULAR VOLUME 95 fl (80-97); MONOCYTES % (AUTO) 5.2 % (3-13); PLATELET COUNT 203 10^3/uL (150-450); RED BLOOD COUNT 4.23 10^6/uL (3.72-5.28); SEGMENTED NEUTROPHILS % (AUTO) 59.7 % (42-78); TOTAL CELLS COUNTED % (AUTO) 100 %
--- NOTE | 2019-10-22 16:50 | RADIOLOGY REPORT (SQ) ---
EXAM DESCRIPTION: CHEST SINGLE VIEW IMAGES COMPLETED DATE/TIME: 10/22/2019 4:39 pm REASON FOR STUDY: cp COMPARISON: 07/17/2019 EXAM PARAMETERS: NUMBER OF VIEWS: One view. TECHNIQUE: Single frontal radiographic view of the chest acquired. RADIATION DOSE: NA LIMITATIONS: None. FINDINGS: LUNGS AND PLEURA: No opacities, masses or pneumothorax. No pleural effusion. MEDIASTINUM AND HILAR STRUCTURES: No masses. Contour normal. HEART AND VASCULAR STRUCTURES: Heart normal in size. Normal vasculature. BONES: No acute findings. HARDWARE: None in the chest. OTHER: No other significant finding. IMPRESSION: 1. No significant interval changes since the prior examination dated 07/17/2019. No acu te findings. TECHNICAL DOCUMENTATION: JOB ID: [id number] 2010 [employer]- All Rights Reserved Reading location - IP/workstation name: [email or web address]
[2019-10-22 16:54] LABS: ALBUMIN 4.1 g/dL (3.5-5.0); ALKALINE PHOSPHATASE 41 U/L (38-126); ASPARTATE AMINO TRANSFERASE 19 U/L (14-36); BILIRUBIN,TOTAL 0.5 mg/dL (0.2-1.3); BLOOD UREA NITROGEN 10 mg/dL (7-20); CALCIUM 9.1 mg/dL (8.4-10.2); CARBON DIOXIDE 27 mmol/L (22-30); GLUCOSE 84 mg/dL (75-110)
[2019-10-22 16:59] LABS: CHLORIDE 104 mmol/L (98-107)
[2019-10-22 17:00] LABS: ANION GAP 5 (5-19)
[2019-10-22 18:54] VITALS: BP 104/68
--- NOTE | 2019-10-23 20:45 | EKG REPORT ---
SEVERITY:- NORMAL ECG - SINUS RHYTHM : Confirmed by: Nidhi Wasserman 23-Oct-2019 20:44:50
== END 2019-10-22 18:56 | disposition home or self-care (01) ==
LOC: ER 14:01
DX: F41.9 Anxiety disorder, unspecified (principal); R51 Headache; F43.9 Reaction to severe stress, unspecified; Z56.4 Discord with boss and workmates; R07.9 Chest pain, unspecified; J44.9 Chronic obstructive pulmonary disease, unspecified; R68.84 Jaw pain; Z88.0 Allergy status to penicillin; Z88.8 Allergy status to other drugs, medicaments and biological substances; F17.200 Nicotine dependence, unspecified, uncomplicated
CPT/HCPCS: 93005; 99284; 96361; 96374; 96375; 36415; 85025; 80053; 84484; 71045; 93010; J1200; J1885; J0780; J7030

== ENCOUNTER 2020-04-13 15:00 | Emergency (ER) | payer BC ==
[2020-04-13] MEDS ORDERED: HYDROCODONE/ACETAMINOPHEN 5-325 MG TABLET PO ONE (15:27)
--- NOTE | 2020-04-13 15:28 | ER Document Report ---
ED Medical Screen (RME) - General Stated Complaint: FINGER LACERATION Time Seen by Provider: 04/13/20 15:19 Notes: Laceration to left third finger. Patient was using a knife to cut potatoes and cut her left third fingertip. Patient does have nail involvement. Tetanus immunizations currently up-to-date I have greeted and performed a rapid initial assessment of this patient. A comprehensive ED assessment and evaluation of the patient, analysis of test results and completion of the medical decision making process will be conducted by additional ED providers. TRAVEL OUTSIDE OF THE [place] IN LAST 30 DAYS: No - Related Data Allergies/Adverse Reactions: Penicillins Allergy (Verified 04/13/20 15:22) quetiapine [From Seroquel] Allergy (Verified 04/13/20 15:22) trazodone Allergy (Verified 04/13/20 15:22) doxycycline Adverse Reaction (Verified 04/13/20 15:22) Vomiting Past Medical History Pulmonary Medical History: Reports: Hx COPD Renal/ Medical History: Denies: Hx Peritoneal Dialysis Psychiatric Medical History: Reports: Hx Anxiety, Hx Depression Past Surgical History: Reports: Hx Orthopedic Surgery - Spinal fusion, SI joint fusion Physical Exam - Vital signs Vitals: Temp Pulse Resp BP Pulse Ox 97.5 F 97 18 112/67 95 04/13/20 15:05 04/13/20 15:05 04/13/20 15:05 04/13/20 15:05 04/13/20 15:05 - General General appearance: Appears well, Alert Notes: Laceration to the left third fingertip involving the nail, no active bleeding Course - Vital Signs Vital signs: Temp Pulse Resp BP Pulse Ox 97.5 F 97 18 112/67 95 04/13/20 15:05 04/13/20 15:05 04/13/20 15:05 04/13/20 15:05 04/13/20 15:05
[2020-04-13] MEDS ORDERED: BUPIVACAINE HCL 0.5 % INJ/PF 30 ML SDV INJ ONE (16:03)
[2020-04-13] MEDS ORDERED: LIDOCAINE 2% INJ (20 MG/ML) 20 ML MDV INJ ONE (16:03)
--- NOTE | 2020-04-13 16:31 | ER Document Report ---
ED General - General Chief Complaint: Laceration Stated Complaint: FINGER LACERATION Time Seen by Provider: 04/13/20 15:19 Notes: Patient presents to the ER for evaluation of laceration to the distal left third finger that occurred when she was using a knife to cut sweet potatoes approximately 30 minutes prior to arrival. Denies weakness or numbness in the finger. She denies other injury. Bleeding controlled upon arrival. Nursing notes reviewed and past medical, social, and family histories reviewed and validated. TRAVEL OUTSIDE OF THE [place] IN LAST 30 DAYS: No - Related Data Allergies/Adverse Reactions: Penicillins Allergy (Verified 04/13/20 15:22) quetiapine [From Seroquel] Allergy (Verified 04/13/20 15:22) trazodone Allergy (Verified 04/13/20 15:22) doxycycline Adverse Reaction (Verified 04/13/20 15:22) Vomiting Past Medical History - General Information source: Patient - Social History Smoking Status: Current Every Day Smoker Cigarette use (# per day): Yes - 20 Chew tobacco use (# tins/day): No Smoking Education Provided: Yes Frequency of alcohol use: Occasional Drug Abuse: None Lives with: Family Family History: Malignancy - Ovarian cancer in mother, Patient has suicidal ideation: No Patient has homicidal ideation: No - Past Medical History Cardiac Medical History: Reports: None Pulmonary Medical History: Reports: Hx COPD EENT Medical History: Reports: None Neurological Medical History: Reports: None Endocrine Medical History: Reports: None Renal/ Medical History: Reports: None. Denies: Hx Peritoneal Dialysis Malignancy Medical History: Reports: None GI Medical History: Reports: None Musculoskeletal Medical History: Reports None Skin Medical History: Reports None Psychiatric Medical History: Reports: Hx Anxiety, Hx Depression Traumatic Medical History: Reports: None Infectious Medical History: Reports: None Past Surgical History: Reports: Hx Orthopedic Surgery - Spinal fusion, SI joint fusion - Immunizations Immunizations up to date: Yes Hx Diphtheria, Pertussis, Tetanus Vaccination: Yes Review of Systems - Review of Systems Notes: Constitutional: Negative for fever. HENT: Negative for sore throat. Eyes: Negative for visual changes. Cardiovascular: Negative for chest pain. Respiratory: Negative for shortness of breath. Gastrointestinal: Negative for abdominal pain, vomiting or diarrhea. Genitourinary: Negative for dysuria. Musculoskeletal: Negative for back pain. Skin: Finger laceration on left hand. Neurological: Negative for headaches, weakness or numbness. 10 point ROS negative except as marked above and in HPI. Physical Exam - Vital signs Vitals: Temp Pulse Resp BP Pulse Ox 97.5 F 97 18 112/67 95 04/13/20 15:05 04/13/20 15:05 04/13/20 15:05 04/13/20 15:05 04/13/20 15:05 - Notes Notes: CONSTITUTIONAL: Well appearing in no acute distress SKIN: There is a 1 cm laceration to the anterior aspect of the distal left middle finger that extends into the lateral portion of the fingernail. The fingernail is still in place. EYES: Extraocular movements are grossly intact, clear conjunctiva HENT: Normocephalic, atraumatic, moist mucus membranes NECK: No obvious swelling, normal range of motion PULMONARY: Normal chest rise and fall, no respiratory distress or stridor CARDIOVASCULAR: Regular rate, distal extremities are warm and well perfused NEUROLOGIC: Normal speech, moves all extremities MUSCULOSKELETAL: No gross deformities, atraumatic PSYCHIATRIC: Normal mood and affect Course - Re-evaluation Re-evalutation: 04/13/20 16:39 Rechecked patient who has responded well to treatment in the ER. Discussed with patient: results, diagnosis, treatment plan, and need for follow-up. Return to the emergency department warnings were given. All questions and concerns were addressed. The plan is agreed with and understood. Patient is stable and ready for discharge. - Vital Signs Vital signs: Temp Pulse Resp BP Pulse Ox 97.5 F 97 18 112/67 95 04/13/20 15:05 04/13/20 15:05 04/13/20 15:05 04/13/20 15:05 04/13/20 15:05 Procedures - Laceration/Wound Repair Left Distal Finger 3rd digit Time completed: 16:15 Wound length (cm): 1 Wound's Depth, Shape: Linear Anesthetic type: Other - Digital block with lidocaine 2% plain and Marcaine 0.5% plain Volume Anesthetic (mLs): 5 Wound explored: Clean, No foreign body removed Irrigated w/ Saline (mLs): 20 Wound Debrided: Minimal Wound Repaired With: Sutures Suture Size/Type: 4:0 Number of Sutures: 3 Layer Closure?: No Post-procedure wound care: Sterile dressing applied Post-procedure NV exam normal: Yes Complications: No Discharge - Discharge Clinical Impression: Finger laceration Qualifiers: Encounter type: initial encounter Finger: middle finger Damage to nail status: with damage Foreign body presence: without foreign body Laterality: left Qualified Code(s): S61.313A - Laceration without foreign body of left middle finger with damage to nail, initial encounter Condition: Good Disposition: HOME, SELF-CARE Instructions: Laceration Care ([facility]) Additional Instructions: Return to the emergency room in 7 to 10 days for suture removal.
[2020-04-13] MEDS ORDERED: TETANUS/DIPHTHERIA TOX-ADULT 0.5 ML SYR (>=7YO) IM ONE (16:39)
[2020-04-13 17:16] VITALS: BP 115/81
== END 2020-04-13 17:16 | disposition home or self-care (01) ==
LOC: ER 15:00
DX: S61.213A Laceration without foreign body of left middle finger without damage to nail, initial encounter (principal); W26.0XXA Contact with knife, initial encounter; F17.210 Nicotine dependence, cigarettes, uncomplicated; J44.9 Chronic obstructive pulmonary disease, unspecified; Z98.1 Arthrodesis status; Z23 Encounter for immunization
CPT/HCPCS: 99283; 90471; 90714; 12001; J3490 ×2